=== PATIENT | male | born 1960 | race Hispanic/Latino ===

== ENCOUNTER → 2023-05-30 07:52 | Outpatient (CLI) | payer OTHER, SELFPAY | PROVIDERS: Family Provider Family Medicine Geriatric Medicine; PCP Student in an Organized Health Care Education/Training Program; Referring Provider Student in an Organized Health Care Education/Training Program; Visit Provider Student in an Organized Health Care Education/Training Program | DX: J44.9 Chronic obstructive pulmonary disease, unspecified (principal); Z87.891 Personal history of nicotine dependence | CPT/HCPCS: 94060; 94726; 94729 ==

== ENCOUNTER → 2024-01-22 07:31 | Outpatient (CLI) | payer OTHER, SELFPAY ==
--- NOTE | 2024-01-22 07:32 | DI.NM.S_ITS ---
PROCEDURE: NM EXERCISE TREADMILL NON NUC COMPARISON: None. INDICATIONS: PREOP FINDINGS: Rest ECG sinus rhythm. [facility]mond protocol 6:18, maximum heart rate 139 bpm (89% peak predicted), maximum blood pressure 166/100, 7.0 METS, APOLINAR +18%. Exercise ECG sinus tachycardia, no ST segment changes, polymorphic PVCs. The patient did not complain of exercise-induced chest discomfort. IMPRESSION: Low risk study. No evidence of exercise-induced ischemia on ECG. Exercise-induced PVCs. Normal hemodynamic response. Slightly reduced exercise capacity. Dictated by: Mai Eagle D.O. on 01/22/2024 at 17:08 Approved by: Mai Eagle D.O. on 01/22/2024 at 17:11
== END ==
LOC: DI 07:31
PROVIDERS: Family Provider Family Medicine Geriatric Medicine; PCP Student in an Organized Health Care Education/Training Program; Referring Provider Student in an Organized Health Care Education/Training Program; Visit Provider Student in an Organized Health Care Education/Training Program
DX: Z01.810 Encounter for preprocedural cardiovascular examination (principal)
CPT/HCPCS: 93017